=== PATIENT | male | born 2000 ===

== ENCOUNTER 2021-11-22 10:26 | Emergency (ER) | payer OTHER ==
[~2021-11-22] VITALS: Ht 172.7 cm; Wt 68.2 kg
[2021-11-22 10:31] VITALS: TEMP 97.6
[2021-11-22 13:10] VITALS: BP 122/80; PULSE 66
== END 2021-11-22 13:10 | disposition home or self-care (01) ==
LOC: COL.ER 10:26
DX: M24.412 Recurrent dislocation, left shoulder (principal); X50.1XXA Overexertion from prolonged static or awkward postures, initial encounter; Y92.092 Bedroom in other non-institutional residence as the place of occurrence of the external cause
CPT/HCPCS: J2704; J3010